=== PATIENT | female | born 1985 | race Caucasian/White ===

== ENCOUNTER 2018-11-15 14:23 | Emergency (ER) | payer OTHER ==
[2018-11-15 14:28] VITALS: BMI 28.3
[2018-11-15] MEDS ORDERED: Sodium Chloride 0.9% 1,000 ML IV STA (15:58)
--- NOTE | 2018-11-15 16:04 | ED PDOC ---
HPI: Abdomen Time Seen by Provider: 11/15/18 15:13 Chief Complaint (Nursing): Abdominal Pain Chief Complaint (Provider): Abdominal Pain History Per: Patient, [employer] (daughter) History/Exam Limitations: no limitations Onset/Duration Of Symptoms: Days (x2) Current Symptoms Are (Timing): Still Present Location Of Pain/Discomfort: Suprapubic Quality Of Discomfort: "Pain" Additional Complaint(s): 33 year old female with no past medical history presents to the ED with constant lower abdominal pain onset 2 days associated nausea. Patient denies vaginal bleeding. LMP October 04. History translated by daughter. PMD: none provided Abnormal Vaginal Bleeding: No Past Medical History Reviewed: Historical Data, Nursing Documentation, Vital Signs Vital Signs: Last Vital Signs Temp 98.5 F 11/15/18 14:27 Pulse 98 H 11/15/18 14:27 Resp 16 11/15/18 14:27 BP 114/75 11/15/18 14:27 Pulse Ox 100 11/15/18 14:27 - Medical History PMH: No Chronic Diseases - Surgical History Surgical History: No Surg Hx - Family History Family History: States: Unknown Family Hx - Home Medications Home Medications: Ambulatory Orders Medication Instructions Recorded Doxylamine/Pyridoxine HCl (B6) 1 each PO QPM PRN #15 tablet. 11/15/18 [Joe Stuart 10-10 mg Tablet] Pnv No.95/Ferrous Fum/Folic AC 1 each PO DAILY #30 tablet 11/15/18 [ Vitamins Tablet] - Allergies Allergies/Adverse Reactions: Allergies Allergy/AdvReac Type Severity Reaction Status Date / Time No Known Allergies Allergy Verified 11/15/18 14:37 Review of Systems ROS Statement: Except As Marked, All Systems Reviewed And Found Negative Gastrointestinal: Positive for: Nausea, Abdominal Pain (lower) Genitourinary Female: Negative for: Vaginal Bleeding Physical Exam - Reviewed Nursing Documentation Reviewed: Yes Vital Signs Reviewed: Yes - Physical Exam Appears: Positive for: Non-toxic, No Acute Distress Head Exam: Positive for: ATRAUMATIC, NORMOCEPHALIC Skin: Positive for: Normal Color, Warm, Dry Eye Exam: Positive for: Normal appearance, EOMI, PERRL Cardiovascular/Chest: Positive for: Regular Rate, Rhythm. Negative for: Murmur Respiratory: Positive for: Normal Breath Sounds. Negative for: Respiratory Distress Gastrointestinal/Abdominal: Positive for: Tenderness (minimal suprapubic ). Negative for: Guarding, Rebound Extremity: Positive for: Normal ROM (upper and lower). Negative for: Pedal Edema, Deformity Neurological/Psych: Positive for: Awake, Alert, Oriented (x3) - Laboratory Results Result Diagrams: 11/15/18 16:43 11/15/18 16:43 - ECG O2 Sat by Pulse Oximetry: 100 (RA) Pulse Ox Interpretation: Normal Medical Decision Making Medical Decision Making: Time: 151 Plan: --Beta HCG --CMP --U preg --U dip --CBC --Iv fluids --Reglan 10 mg IVP --Ua --OB Preg Accession No. : [id number] Patient Name / ID : CASSIE WILKS / [id number] Exam Date : 11/15/2018 17:13:24 ( Approved ) Study Comment : Sex / Age : F / 33Y Creator : Dayo Calabrese MD Dictator : Dayo Calabrese MD Network Management Specialist : Skiver Operator : Dayo Calabrese MD Approver2 : Report Date : 11/15/2018 18:10:26 My Comment : * Date of service: 11/15/2018 PROCEDURE: Pelvic ultrasound. HISTORY: with lower abdominal pain. LMP: 10/04/2018 COMPARISON: None available. FINDINGS: UTERUS: Uterus measures 8.6 x 4.4 x 4.6 cm. Normal in size and appearance. Note made of a small elliptical shaped fluid collection within the endometrial canal that could represent a early gestation. Gestational sac: MSD = 0.4 cm = out of range Yolk sac: pole: Heart motion: Not detected; Heart rate: Not detected. age (Ultrasound estimated): Out of range CERVIX: Measures 3.7 cm. Long and closed. No cervical abnormality seen. RIGHT OVARY: Measures 2.9 x 1.9 x 2.3 cm. No mass lesion. Normal flow. LEFT OVARY: Measures 1.7 x 1.8 x 2.0 cm. No solid mass. Normal flow. FREE FLUID: No free fluid seen in the cul de sac. OTHER FINDINGS: None. IMPRESSION: Questionable early intrauterine gestation as above. Note however that the possibility of an ectopic cannot be excluded therefore follow-up serial serum beta HCG and serial pelvic ultrasound recommended to assess for development of a viable intrauterine gestation. Scribe Attestation: Documented by Jackie Mccracken, acting as a scribe for Quynh Marcelino MD. Provider Scribe Attestation: All medical record entries made by the Scribe were at my direction and personally dictated by me. I have reviewed the chart and agree that the record accurately reflects my personal performance of the history, physical exam, medical decision making, and the department course for this patient. I have also personally directed, reviewed, and agree with the discharge instructions and disposition. Disposition - Clinical Impression Clinical Impression: Abdominal pain during - Disposition [facility] Disposition: Routine/Home Disposition Time: 18:30 Condition: STABLE Additional Instructions: REGRESE A LA ED EN 48 HORAS PARA REPETIR LA BETA HCG Y LA POSIBLE ECOGRAFA. Prescriptions: Doxylamine/Pyridoxine HCl (B6) [Joe Stuart 10-10 mg Tablet] 1 each PO QPM PRN #15 tablet. PRN Reason: Nausea/Vomiting Pnv No.95/Ferrous Fum/Folic AC [ Vitamins Tablet] 1 each PO DAILY #30 tablet Instructions: Stomach Pain in Early Forms: [employer] ([employer]) Print Language: KYRGYZ
[2018-11-15 16:53] LABS: BASO # 0.1 K/uL (0.0-0.2); BASO % 0.6 % (0.0-2.0); EOS # 0.2 K/uL (0.0-0.7); EOS % 1.3 % (0.0-4.0); HEMOGLOBIN 12.9 g/dL (12.0-16.0); LYMPH # 3.3 K/uL (1.0-4.3); MEAN CELL VOLUME 89.7 fl (81.0-99.0); MEAN CORPUSCULAR HEMOGLOBIN 30.9 pg (27.0-31.0); MEAN CORPUSCULAR HGB CONC 34.4 g/dL (33.0-37.0); MEAN PLATELET VOLUME 8.6 fl (7.2-11.7); MONO # 0.7 K/uL (0.0-0.8); MONO % 5.1 % (0.0-10.0); NEUT # 8.6 K/uL (1.8-7.0); NRBC % 0.1 % (0.0-0.0); RBC 4.19 Mil/uL (3.80-5.20); RED CELL DISTRIBUTION WIDTH 13.6 % (11.5-14.5); WHITE BLOOD COUNT 12.8 K/uL (4.8-10.8)
[2018-11-15 17:11] LABS: SQUAMOUS EPITHIAL 2 /hpf (0-5); URINE BACTERIA RARE (<OCC); URINE BILIRUBIN NEGATIVE (NEGATIVE); URINE BLOOD NEGATIVE (NEGATIVE); URINE CLARITY CLEAR (Clear); URINE COLOR STRAW (YELLOW); URINE GLUCOSE (UA) NEG (NEGATIVE); URINE LEUKOCYTE ESTERASE NEG Leu/uL (Negative); URINE PROTEIN NEGATIVE (NEGATIVE); URINE UROBILINOGEN 0.2-1.0 mg/dL (0.2-1.0)
[2018-11-15 17:31] LABS: ALB/GLOB RATIO 1.2 (1.0-2.1); ALBUMIN 4.9 g/dL (3.5-5.0); ALT/SGPT 31 U/L (9-52); AST/SGOT 45 U/L (14-36); BLOOD UREA NITROGEN 9 mg/dl (7-17); CALCIUM 9.7 mg/dL (8.4-10.2); GFR NON-AFRICAN AMERICAN > 60
--- NOTE | 2018-11-15 18:14 | US ---
Date of service: 11/15/2018 PROCEDURE: Pelvic ultrasound. HISTORY: with lower abdominal pain. LMP: 10/04/2018 COMPARISON: None available. FINDINGS: UTERUS: Uterus measures 8.6 x 4.4 x 4.6 cm. Normal in size and appearance. Note made of a small elliptical shaped fluid collection within the endometrial canal that could represent a early gestation. Gestational sac: MSD = 0.4 cm = out of range Yolk sac: pole: Heart motion: Not detected; Heart rate: Not detected. age (Ultrasound estimated): Out of range CERVIX: Measures 3.7 cm. Long and closed. No cervical abnormality seen. RIGHT OVARY: Measures 2.9 x 1.9 x 2.3 cm. No mass lesion. Normal flow. LEFT OVARY: Measures 1.7 x 1.8 x 2.0 cm. No solid mass. Normal flow. FREE FLUID: No free fluid seen in the cul de sac. OTHER FINDINGS: None. IMPRESSION: Questionable early intrauterine gestation as above. Note however that the possibility of an ectopic cannot be excluded therefore follow-up serial serum beta HCG and serial pelvic ultrasound recommended to assess for development of a viable intrauterine gestation.
[2018-11-15 20:07] VITALS: BP 126/83; PULSE 78; RESP 15; TEMP 98.7; O2SAT 99
== END 2018-11-15 20:07 | disposition home or self-care (01) ==
LOC: H.ER 14:23
DX: O26.899 Other specified pregnancy related conditions, unspecified trimester (principal)
CPT/HCPCS: 76815; 76817; 80053; 81003; 81025; 84702; 85025; 96360; 99284; J7030

== ENCOUNTER 2018-11-18 10:45 | Emergency (ER) | payer OTHER ==
[2018-11-18 10:51] VITALS: BMI 28.5
[2018-11-18 10:52] VITALS: BP 105/68; PULSE 78; RESP 18; TEMP 98.7; O2SAT 99
--- NOTE | 2018-11-18 11:04 | ED PDOC ---
HPI: General Adult Time Seen by Provider: 11/18/18 11:02 Chief Complaint (Nursing): Abnormal Labs Chief Complaint (Provider): FOLLOW UP BETA History Per: Patient (33 Y/O FEMALE LMP 10/04/2018 HERE FOR FOLLOW UP BETA HCG AFTER ED VISIT 2 DAYS PRIOR FOR ABD PAIN/NAUSEA. PATIENT STATES ABD PAIN RESOLVED. ULTRASOUND UNABLE TO CLEARLY IDENTIFY IUP. ) Past Medical History Reviewed: Historical Data, Nursing Documentation, Vital Signs Vital Signs: Last Vital Signs Temp 98.7 F 11/18/18 10:51 Pulse 78 11/18/18 10:51 Resp 18 11/18/18 10:51 BP 105/68 11/18/18 10:51 Pulse Ox 99 11/18/18 10:51 - Family History Family History: States: Unknown Family Hx - Home Medications Home Medications: Ambulatory Orders Medication Instructions Recorded Doxylamine/Pyridoxine HCl (B6) 1 each PO QPM PRN #15 tablet. 11/15/18 [Joe Stuart 10-10 mg Tablet] Pnv No.95/Ferrous Fum/Folic AC 1 each PO DAILY #30 tablet 11/15/18 [ Vitamins Tablet] - Allergies Allergies/Adverse Reactions: Allergies Allergy/AdvReac Type Severity Reaction Status Date / Time No Known Allergies Allergy Verified 11/15/18 14:37 Review of Systems ROS Statement: Except As Marked, All Systems Reviewed And Found Negative Physical Exam - Reviewed Nursing Documentation Reviewed: Yes Vital Signs Reviewed: Yes - Physical Exam Appears: Positive for: Well, Non-toxic, No Acute Distress Head Exam: Positive for: ATRAUMATIC, NORMAL INSPECTION, NORMOCEPHALIC Skin: Positive for: Normal Color, Warm, DRY Eye Exam: Positive for: EOMI, Normal appearance, PERRL ENT: Positive for: Normal ENT Inspection Neck: Positive for: Normal, Painless ROM Cardiovascular/Chest: Positive for: Regular Rate, Rhythm Respiratory: Positive for: CNT, Normal Breath Sounds Gastrointestinal/Abdominal: Positive for: Normal Exam, Soft Back: Positive for: Normal Inspection Extremity: Positive for: Normal ROM Neurological/Psych: Positive for: Awake, Alert, Normal Tone - ECG O2 Sat by Pulse Oximetry: 99 - Progress ED Course And Treament: beta hcg 2698 elevated from 2 days ago. Patient advised return to ED in 2 days for repeat beta or f/u with improvement specialist Disposition - Clinical Impression Clinical Impression: Threatened miscarriage in early - Patient ED Disposition Is Patient to be Admitted: No - Disposition Disposition: Routine/Home Disposition Time: 12:14 Condition: FAIR Additional Instructions: REGRESA EN 2 LAND PARA REPETIR PRUEBA DE JESUS BHCG Instructions: Threatened Miscarriage (DC) Print Language: SOMALI
== END 2018-11-18 12:20 | disposition home or self-care (01) ==
LOC: H.ER 10:45
DX: O20.0 Threatened abortion (principal)

== ENCOUNTER 2018-11-20 09:24 | Emergency (ER) | payer OTHER ==
[2018-11-20 09:34] VITALS: BMI 27.6
[2018-11-20 09:42] VITALS: O2SAT 98
--- NOTE | 2018-11-20 10:13 | ED PDOC ---
HPI: Female Pain Time Seen by Provider: 11/20/18 09:59 Chief Complaint (Nursing): Female Genitourinary Chief Complaint (Provider): repeat bhcg History Per: Patient History/Exam Limitations: no limitations Onset/Duration Of Symptoms: Days (today) Additional Complaint(s): pt. is preg, unsure how long. Here for repeat bhcg level. Last US did not show clear in uterus. Pt. denies any pain, weakness, vaginal bleeding, back pain, dysuria. Past Medical History Reviewed: Nursing Documentation, Vital Signs Vital Signs: Last Vital Signs Temp 98.6 F 11/20/18 09:33 Pulse 83 11/20/18 09:33 Resp 16 11/20/18 09:33 BP 106/67 11/20/18 09:33 Pulse Ox 98 11/20/18 09:39 Primary Care Provider: FAMILY PROVIDER,NO - Medical History PMH: No Chronic Diseases - Surgical History Surgical History: No Surg Hx - Family History Family History: States: Unknown Family Hx - Home Medications Home Medications: Ambulatory Orders Medication Instructions Recorded Doxylamine/Pyridoxine HCl (B6) 1 each PO QPM PRN #15 tablet. 11/15/18 [Dicfavio Stuart 10-10 mg Tablet] Pnv No.95/Ferrous Fum/Folic AC 1 each PO DAILY #30 tablet 11/15/18 [ Vitamins Tablet] - Allergies Allergies/Adverse Reactions: Allergies Allergy/AdvReac Type Severity Reaction Status Date / Time No Known Allergies Allergy Verified 11/20/18 09:39 Review of Systems ROS Statement: Except As Marked, All Systems Reviewed And Found Negative Physical Exam - Reviewed Nursing Documentation Reviewed: Yes Vital Signs Reviewed: Yes - Physical Exam Appears: Positive for: Non-toxic, No Acute Distress Head Exam: Positive for: ATRAUMATIC, NORMAL INSPECTION, NORMOCEPHALIC Skin: Positive for: Normal Color, Warm, DRY Eye Exam: Positive for: EOMI, Normal appearance, PERRL ENT: Positive for: Normal ENT Inspection Neck: Positive for: Normal, Painless ROM Cardiovascular/Chest: Positive for: Regular Rate, Rhythm Respiratory: Positive for: CNT, Normal Breath Sounds Gastrointestinal/Abdominal: Positive for: Normal Exam, Soft. Negative for: Tenderness Back: Positive for: Normal Inspection. Negative for: L CVA Tenderness, R CVA Tenderness Extremity: Positive for: Normal ROM Neurological/Psych: Positive for: Awake, Alert, Normal Tone - Laboratory Results Lab Results: 4499.90 hcg - ECG O2 Sat by Pulse Oximetry: 98 Pulse Ox Interpretation: Normal - CT Scan/US US Other Rad Studies (CT/US): Read By Radiologist Other Rad Interpretation: ?IUP - Progress ED Course And Treament: 1427: Stable. Spoke Dr. Doyle with Dr. Gagnon. Wants pt. to come back in 2 days for repeat bhcg and US. They reviewed imaging, labs, and presentation. Pt. with no findings. Disposition - Clinical Impression Clinical Impression: Early stage of - Patient ED Disposition Is Patient to be Admitted: No Counseled Patient/Family Regarding: Studies Performed, Diagnosis, Need For Followup - Disposition [facility]errals[facility]] - 11/21/18 Disposition: Routine/Home Disposition Time: 14:32 Condition: STABLE Additional Instructions: Return right away if any pain, weakness, dizziness, vaginal bleeding, or not f eeling right. Come back in 2 days for repeat bhcg and ultrasound. Instructions: Activity During Forms: [facility] ED School/Work Excuse
--- NOTE | 2018-11-20 12:08 | US ---
Date of service: 11/20/2018 HISTORY: preg and pain beta HCG level 2698.40 on 11/18/2018 COMPARISON: 05/10/2012 transvaginal ultrasound. TECHNIQUE: Transvaginal real-time scanning with color Doppler FINDINGS: UTERUS: Measures 7.7 x 6.2 x 4.8 cm. No uterine masses seen. Please note below section ENDOMETRIUM: Measures thickened diffusely at 16 mm in diameter. Also on transverse image series 2, image 20 of the current X study and also on the prior 5th 11/15/2018 study from series 1, image 52 , the impression of a transverse Trini widen is raised. The possibility of cornuate uterus or other uterine developmental anomaly needs to be considered. Also the prior tiny intrauterine small fluid like collection appears slightly larger now measuring approximately 1 point 7 x 6.4 mm on current axial series 2, image 20 assessed increased in size compared to the 11/15/2018 study. Interval enlarging left-sided gestational sac intrauterine is 1 consideration. Current irregularly shaped hypoechoic focus in the right side of the uterus intrauterine cavity flank by the thicken endometrium on current axial series 2, image 20 may represent a prior 2nd intrauterine gestational sac it does not appear as anechoic as that on the left-is not seen previously on the prior study. This area measures 9.8 x 7 mm. No contiguous left perigestational hemorrhage regarding the more clearly anechoic circumscribed left-sided intrauterine possible gestational sac is now seen. No embryonic pole identified. On current axial series 2, image 36 within this left-sided anechoic focus the possibility of a tiny 0.10 cm developing yolk sac is a consideration. The size of this possible left intrauterine gestational sac is out of range if a intrauterine gestation is indeed present here it is believed to be less than 6 weeks of gestation. Continued clinical surveillance is advised. CERVIX: No cervical abnormality identified. RIGHT OVARY: Measures 2.5 x 2.5 x 1.5 cm. No solid mass. Normal flow. LEFT OVARY: Measures 3.4 x 2.5 x 1.9 cm. No solid mass. Normal flow. FREE FLUID: No significant free fluid noted. OTHER FINDINGS: None. IMPRESSION: Since the most recent 11/15/2018 study, this interval increase in size of the prior anechoic intrauterine focal fluid collection a surrounded by a thickened endometrium. An early intrauterine gestation here is 1 consideration. Size has increased since the prior exam. A possible tiny 1 mm yolk sac here is a consideration continued surveillance here is advised. A possible 2nd abnormal appearing intrauterine gestational sac level echoes within it right lateral to the prior singular intrauterine gestation cannot be excluded. A remote perigestational hemorrhagic focus is another. Based on the appearance mainly on transverse images of these 2 findings and the transverse prominent width of the endometrium-the possibility of a developmental uterine anomaly-for example cornuate the uterus needs to be considered. Based on this gestational sac size which is out of range-a possible intrauterine gestation less than 6 weeks is still a consideration. Correlation with serial beta HCG levels is recommended. Consider follow-up imaging in 7 to 10 days as well. Findings in the left adnexa are compatible with a probable left corpus luteal cyst. No free fluid in the pelvis noted. Continued close surveillance is advised. Comments: Study marked for PA review .
[2018-11-20 15:33] VITALS: BP 110/70; PULSE 72; RESP 20; TEMP 98
== END 2018-11-20 15:32 | disposition home or self-care (01) ==
LOC: H.ER 09:24
DX: Z33.1 Pregnant state, incidental (principal); R93.89 Abnormal findings on diagnostic imaging of other specified body structures